=== PATIENT | male | born 1955 | race Caucasian/White ===

== ENCOUNTER 2016-12-14 10:49 | Emergency (ER) | payer MEDICAID, OTHER ==
[2016-12-14] MEDS ORDERED: Lidocaine 1% with EPINEPHrine 1:100,000 50 ML MDV INFILT ONE (11:16)
--- NOTE | 2016-12-14 11:16 | EDM.PDOC ---
ED HPI GENERAL MEDICAL PROBLEM - General Chief Complaint: Laceration Stated Complaint: LEFT WRIST LACERATION Time Seen by Provider: 12/14/16 11:15 Source of Information: Reports: Patient History Limitations: Reports: No Limitations - History of Present Illness INITIAL COMMENTS - FREE TEXT/NARRATIVE: 61-year-old male accidentally cut his left wrist with a sharp steam box hand type knife when he was opening the plastic wrappings on a box. He has a laceration on the flexor surface of his left wrist. Onset: Sudden Duration: Hour(s): (Within the last hour) Location: Reports: Upper Extremity, Left Severity: Mild Associated Symptoms: Reports: No Other Symptoms Left Wrist Pain Score (Numeric/FACES): 5 - Related Data Allergies Allergy/AdvReac Type Severity Reaction Status Date / Time No Known Allergies Allergy Verified 12/14/16 11:17 Home Meds: Home Meds NK [No Known Home Meds] 12/14/16 [History] ED ROS GENERAL - Review of Systems Review Of Systems: ROS reveals no pertinent complaints other than HPI. ED EXAM, SKIN/RASH Exam: See Below Exam Limited By: No Limitations General Appearance: Alert, No Apparent Distress Head: Atraumatic Respiratory/Chest: No Respiratory Distress Extremities: Other (Exam is otherwise limited to the left arm. The patient has a 3.5 cm laceration, longitudinal on the flexor surface of the left wrist. It is fairly deep into the subcutaneous tissue but no significant structures are affected. He has full range of motion and sensation and vascular supply to the left hand.) Neurological: Alert, Oriented Psychiatric: Anxious Course - Vital Signs Last Recorded V/S: Last Vital Signs Temp 97.3 F 12/14/16 11:15 Pulse 65 12/14/16 11:15 Resp 16 12/14/16 11:15 BP 146/91 H 12/14/16 11:15 Pulse Ox 97 12/14/16 11:15 - Orders/Labs/Meds Meds: Medications Discontinued Medications Generic Name Dose Route Start Last Admin Trade Name Freq PRN Reason Stop Dose Admin Bacitracin 1 dose 12/14/16 12:13 12/14/16 12:16 Bacitracin Oint 1 Gm TOP 12/14/16 12:14 1 dose ONETIME ONE Administration Lidocaine/Epinephrine 30 ml 12/14/16 11:16 12/14/16 11:27 Xylocaine 1% With Epinephrine 1:100,000 INFILT 12/14/16 11:17 30 ml ONETIME ONE Administration - Re-Assessments/Exams Free Text/Narrative Re-Assessment/Exam: 12/14/16 12:11 The laceration was sterilized with normal saline and Hibiclens. 1% lidocaine with epinephrine was infiltrated in the area. 4 4-0 Ethilon mattress sutures were used to close the laceration, and one regular suture on the end of the laceration was placed. Topical bacitracin and a bandage was applied, patient's tetanus is current. Sutures can be removed in 10 days. He can return sooner if concerns of infection or not healing satisfactorily. Departure - Departure Time of Disposition: 12:20 Disposition: Home, Self-Care 01 Condition: Good Clinical Impression: Laceration of left wrist Qualifiers: Encounter type: initial encounter Qualified Code(s): S61.512A - Laceration without foreign body of left wrist, initial encounter - Discharge Information Instructions: Laceration Care, Adult, [id number] Referrals: PCP,None [Primary Care Provider] - Forms: ED Department Discharge Care Plan Goals: Keep the wound covered and clean while healing. Sutures can be removed in 10 days, on the 24 of December. Return sooner if concerns of infection or not healing satisfactorily.
[2016-12-14] MEDS ORDERED: Bacitracin Oint 1 GM U/D Packet TOP ONE (12:13)
== END 2016-12-14 12:20 | disposition home or self-care (01) ==
LOC: JP.ED 10:49
DX: S61.512A Laceration without foreign body of left wrist, initial encounter (principal); W26.0XXA Contact with knife, initial encounter
CPT/HCPCS: 12002; 99283-25

== ENCOUNTER 2022-05-04 07:45 | Emergency (ER) | payer MEDICARE, MEDICAID ==
[2022-05-04] MEDS ORDERED: Ketorolac 30 MG/ML SDV IM ONE (09:13)
[2022-05-04] MEDS ORDERED: Acetaminophen/oxyCODONE 325-7.5 MG Tab PO ONE (09:14)
== END 2022-05-04 10:51 | disposition home or self-care (01) ==
LOC: JP.ED 07:45
DX: S22.42XA Multiple fractures of ribs, left side, initial encounter for closed fracture (principal); Z72.0 Tobacco use; W19.XXXA Unspecified fall, initial encounter
CPT/HCPCS: 36415; 71101; 80048; 96372; 99283; A9270; J1885

== ENCOUNTER 2023-02-19 18:10 | Emergency (ER) | payer OTHER, MEDICARE, MEDICAID ==
[2023-02-19] MEDS ORDERED: Lactated Ringers 1,000 ML IV ONE (18:16)
[2023-02-19 18:19] LABS: BASOPHILS ABSOLUTE AUTO 0.09 K/uL (0.00-0.10); BASOPHILS PERCENT AUTO 1.1 % (0.1-1.3); EOSINOPHILS ABSOLUTE AUTO 0.18 K/uL (0.00-0.40); EOSINOPHILS PERCENT AUTO 2.1 % (0.0-5.4); HEMATOCRIT 39.6 % (38.4-49.7); HEMOGLOBIN 13.3 g/dL (12.9-16.9); IMMATURE GRAN ABSOLUTE AUTO 0.05 K/uL (0.00-0.23); IMMATURE GRAN PERCENT AUTO 0.6 % (0.0-0.7); LYMPHOCYTES ABSOLUTE AUTO 3.16 K/uL (0.8-3.3); LYMPHOCYTES PERCENT AUTO 37.4 % (11.4-47.7); MEAN CORPUSCULAR HEMOGLOBIN 31.7 pg (31.6-35.5); MEAN CORPUSCULAR HGB CONC 33.6 g/dL (31.6-35.5); MEAN CORPUSCULAR VOLUME 94.3 fL (81.4-99.0); MONOCYTES ABSOLUTE AUTO 0.81 K/uL (0.20-0.90); MONOCYTES PERCENT AUTO 9.6 % (3.3-12.6); NEUTROPHILS ABSOLUTE AUTO 4.17 K/uL (1.0-7.6); NEUTROPHILS PERCENT AUTO 49.2 % (40.0-78.1); PLATELET COUNT,PLT 244 K/uL (130-375); WHITE BLOOD CELL COUNT,WBC 8.5 K/uL (3.2-11.0)
[2023-02-19 18:48] LABS: A/G RATIO 1.2 (1.2-2.2); ALANINE AMINOTRANSFERASE,ALT 54 U/L (12-78); ALBUMIN 3.6 g/dL (3.4-5.0); ALKALINE PHOSPHATASE 62 U/L (46-116); ANION GAP 16.5 mmol/L (5.0-14.0); ASPARTATE AMNIOTRANSFERASE,AST 79 U/L (15-37); BILIRUBIN TOTAL 0.3 mg/dL (0.2-1.0); BLOOD UREA NITROGEN,BUN 14 mg/dL (7-18); CALCIUM 8.1 mg/dL (8.5-10.1); CARBON DIOXIDE,CO2 22 mmol/L (21-32); CHLORIDE,CL 103 mmol/L (100-108); CREATININE 1.2 mg/dL (0.8-1.3); ESTIMATED GFR 66 mL/min (>60); GLUCOSE RANDOM 133 mg/dL (74-106); POTASSIUM,K 3.5 mmol/L (3.6-5.2); PROTEIN TOTAL,TP 6.7 g/dL (6.4-8.2); SODIUM,NA 138 mmol/L (140-148)
[2023-02-19] MEDS ORDERED: Tranexamic Acid 1,000 MG/10 ML Vial IVPUSH ONE (19:09)
[2023-02-19] MEDS ORDERED: Lidocaine 1% 20 ML MDV ONE (19:33)
[2023-02-19] MEDS ORDERED: Lidocaine 1% 20 ML MDV INJECT ONE (19:35)
[2023-02-19] MEDS ORDERED: Etomidate 2 MG/ML 10 ML SDV IVPUSH ONE (19:40)
[2023-02-19] MEDS ORDERED: Rocuronium 50 MG/5 ML Vial IVPUSH ONE (19:40)
[2023-02-19] MEDS ORDERED: Rocuronium 50 MG/5 ML Vial ONE (19:41)
[2023-02-19] MEDS ORDERED: EPINEPHrine 1:10,000 1 MG/10 ML Syringe IVPUSH ONE ×5 (19:50→20:04)
[2023-02-19 19:51] LABS: APPEARANCE,URINE CLOUDY (CLEAR); BILIRUBIN,URINE NEGATIVE (NEGATIVE); COLOR,URINE YELLOW (YELLOW); GLUCOSE,URINE NEGATIVE (NEGATIVE); KETONES,URINE NEGATIVE (NEGATIVE); LEUKOCYTE ESTERASE,URINE NEGATIVE (NEGATIVE); NITRITE,URINE NEGATIVE (NEGATIVE); OCCULT BLOOD,URINE LARGE (NEGATIVE); PROTEIN,URINE TRACE mg/dL (NEGATIVE); UROBILINOGEN,URINE 0.2 EU/dL (0.2-1.0)
[2023-02-19 19:52] LABS: INR 1.3
[2023-02-19 19:56] LABS: AMORPHOUS SEDIMENT,URINE NOT SEEN; BACTERIA,URINE NOT SEEN; EPITHELIAL CELLS,URINE FEW; MUCUS,URINE NOT SEEN; RBC,URINE SEMI-PACKED (0-5); WBC,URINE NOT SEEN (0-5)
== END 2023-02-20 09:39 | disposition expired ==
LOC: JP.ED 18:10
DX: S32.059A Unspecified fracture of fifth lumbar vertebra, initial encounter for closed fracture (principal); S32.039A Unspecified fracture of third lumbar vertebra, initial encounter for closed fracture; S12.590A Other displaced fracture of sixth cervical vertebra, initial encounter for closed fracture; S01.01XA Laceration without foreign body of scalp, initial encounter; S27.0XXA Traumatic pneumothorax, initial encounter; V89.2XXA Person injured in unspecified motor-vehicle accident, traffic, initial encounter; Y92.410 Unspecified street and highway as the place of occurrence of the external cause
CPT/HCPCS: 31500; 36415; 70450; 70450-26; 70486; 70486-26; 71250; 71250-26; 72125; 72125-26; 74176; 74176-26; 80053; 80307; 81001; 85025; 85610; 86850; 86900; 86901; 86920; 86922; 96361; 96374; 96375; 99285-25; J0171; J3490; J7120; P9016